=== PATIENT | male | born 1945 | race Caucasian/White ===

== ENCOUNTER 2019-07-05 08:30 | Emergency (ER) | payer MEDICARE ==
[2019-07-05 08:44] VITALS: BP 122/74
--- NOTE | 2019-07-05 09:05 | UC ---
Cardiac HPI - HPI Summary HPI Summary: 74-year-old male comes in with a chief complaint of left-sided chest pain. Started about 4 days ago. Is gradually getting worse. At its worse is about 4- 5 out of 10. The pain is located left anterior chest just below the nipple. He can make the pain worse by pushing on it. No rash. Twisting turning bending also makes the pain worse. Denies any nausea sweating or shortness of breath. Does have a history of hypertension. Also has a history of peptic ulcer. Denies any abdominal pain. No fevers or chills or cough or chest congestion. - History of Current Complaint Chief Complaint: UCGeneralIllness Stated Complaint: RIB PAIN Time Seen by Provider: 07/05/19 08:52 Pain Intensity: 2 - Allergy/Home Medications Allergies/Adverse Reactions: Allergies Allergy/AdvReac Type Severity Reaction Status Date / Time Penicillins Allergy redness Verified 07/05/19 08:44 Home Medications: Home Medications Chondroitin Sulfate A Sodium [Chondroitin Sulfate Sodium] 07/05/19 [History] Dutasteride 0.5 mg PO DAILY 07/05/19 [History Confirmed 07/05/19] Famotidine TAB* [Pepcid 20 MG TAB*] 40 mg PO DAILY 07/05/19 [History Confirmed 07/05/19] [place]-3 Fatty Acids/Fish Oil [Fish Oil 1,000 mg Softgel] 1 tab PO DAILY [History Confirmed 07/05/19] PMH/Surg Hx/FS Hx/Imm Hx Previously Healthy: Yes - BPH Cardiovascular History: Hypertension GI/ History: Gastroesophageal Reflux - Surgical History Surgical History: Yes Surgery Procedure, Year, and Place: Cyst removed on right side of neck. femoral hernia repair - Family History Known Family History: Positive: Non-Contributory - Social History Alcohol Use: Rare Substance Use Type: None Smoking Status (MU): Former Smoker When Did the Patient Quit Smoking/Using Tobacco: age 27 Review of Systems All Other Systems Reviewed And Are Negative: Yes Constitutional: Positive: Negative Skin: Positive: Negative Eyes: Positive: Negative ENT: Positive: Negative Respiratory: Positive: Negative Cardiovascular: Positive: Chest Pain Gastrointestinal: Positive: Negative Genitourinary: Positive: Negative Motor: Positive: Negative Neurovascular: Positive: Negative Musculoskeletal: Positive: Negative Neurological: Positive: Negative Psychological: Positive: Negative Is Patient Immunocompromised?: No Physical Exam Triage Information Reviewed: Yes Appearance: Well-Appearing, No Pain Distress, Well-Nourished Vital Signs: Initial Vital Signs Temp 97.8 F 07/05/19 08:39 Pulse 60 07/05/19 08:39 Resp 16 07/05/19 08:39 BP 122/74 07/05/19 08:39 Pulse Ox 98 07/05/19 08:39 Vital Signs Reviewed: Yes Eye Exam: Normal Eyes: Positive: Conjunctiva Clear Neck: Positive: Supple Respiratory: Positive: Lungs clear, Normal breath sounds, No respiratory distress, Other: - The left anterior chest just below the nipple there is an area that the patient can push and reproduces pain. There is no rash. No obvious deformity. The abdomen is soft and nontender. Cardiovascular: Positive: RRR Abdomen Description: Positive: Nontender, Soft. Negative: CVA Tenderness (R), CVA Tenderness (L) Bowel Sounds: Positive: Present Musculoskeletal: Positive: Strength Intact, ROM Intact, No Edema - NO CALF TENDERNESS Neurological: Positive: Alert Psychological: Positive: Age Appropriate Behavior Skin Exam: Normal Diagnostics - EKG Cardiac Rate: Bradycardia - AT 0929 Cardiac Rhythm: Sinus: Normal - 53BPM Ectopy: None ST Segment: Normal - Assessment/Plan Course Of Treatment: Patient Name: DEMETRIO LAROSE Medical Record#: [id number] Ordering Physician: Jose Walker MD Acct.#: [id number] : 1945 Age: 74 Sex: M Location: [facility] Exam Date: 07/05/19851 ADM Status: REG ER Order Information: RIBS LT UNI W/PA CH MIN 3 VWS Accession Number: [id number] CPT: 49028 HISTORY: left lower ant rib pain COMPARISONS: Chest radiograph dated October 28, 2013 VIEWS: 6, Frontal view of the chest with frontal and oblique views of the left hemithorax FINDINGS: There is no displaced rib fracture or pneumothorax. The visualized lungs are clear. IMPRESSION: NO DISPLACED RIB FRACTURE OR PNEUMOTHORAX. IF THERE IS PERSISTENT CLINICAL CONCERN FOR OSSEOUS PATHOLOGY OF THE RIBS, BONE SCANNING MAY BE MORE SENSITIVE. <Electronically signed by Dontrell Figueroa MD in [place]> 07/05/19 0909 I discussed the x-rays and EKG with the patient. And his . I do not see any ischemic changes on EKG. I recommended further evaluation in the emergency department. The going to go by POV. - Clinical Impression Provider Diagnosis: Left-sided chest pain Discharge - Sign-Out/Discharge Documenting (check all that apply): Patient Departure All imaging exams completed and their final reports reviewed: Yes - Discharge Plan Condition: Stable Disposition: HOME-RECOMMEND TO ED Patient Education Materials: Chest Pain (ED) Referrals: Nestor Forrest MD [Primary Care Provider] - Additional Instructions: GO DIRECTLY TO THE EMERGENCY DEPARTMENT FOR FURTHER EVALUATION OF YOUR CHEST PAIN. - Billing Disposition and Condition Condition: STABLE Disposition: Home-Recommend to ED
== END 2019-07-05 09:58 | disposition home health service (06) ==
LOC: UCEAST 08:30
DX: R07.89 Other chest pain (principal); I10 Essential (primary) hypertension; K21.9 Gastro-esophageal reflux disease without esophagitis; Z88.0 Allergy status to penicillin; Z87.891 Personal history of nicotine dependence
CPT/HCPCS: 93005; 99212; G0463

== ENCOUNTER 2019-07-05 10:15 | Emergency (ER) | payer MEDICARE ==
--- NOTE | 2019-07-05 10:40 | ED ---
HPI Chest Pain - HPI Summary HPI Summary: 74 year old M presenting to [facility] from [facility] accompanied by complains of left-sided rib pain rated 1/10 in severity since this morning. Symptoms aggravated by movement and deep breathing. Symptoms alleviated by nothing. Patient reports worsening left-sided rib tenderness and soreness. Denies trauma and fall. Patient states he had EKG and x-ray done at [facility] which were normal. He was referred to ED for cardiac blood work. Reports hx HTN for which he takes lisinopril. Denies hx diabetes, hypercholesterolemia. - History of Current Complaint Chief Complaint: EDChestWallPain Time Seen by Provider: 07/05/19 10:31 Hx Obtained From: Patient Onset/Duration: Started Hours Ago, Still Present Timing: Constant Current Severity: Mild Pain Intensity: 1 Pain Scale Used: 0-10 Numeric Aggravating Factor(s): Movement, Deep Breaths Alleviating Factor(s): Nothing Associated Signs and Symptoms: Positive: Other: - worsening left-sided rib tenderness and soreness - Allergy/Home Medications Allergies/Adverse Reactions: Allergies Allergy/AdvReac Type Severity Reaction Status Date / Time Penicillins Allergy redness Verified 07/05/19 10:25 Home Medications: Home Medications Gas-X 1 tab PO SEE INSTRUCTIONS 07/05/19 [History Confirmed 07/05/19] PMH/Surg Hx/FS Hx/Imm Hx Endocrine/Hematology History: Denies: Hx Diabetes Cardiovascular History: Reports: Hx Hypertension Denies: Hx Hypercholesterolemia GI History: Reports: Hx Ulcer - "bleeding ulcer" 1999, Other GI Disorders - bleeding ulcer History: Reports: Other Problems/Disorders - enlarged prostate Sensory History: Reports: Hx Contacts or Glasses Opthamlomology History: Reports: Hx Contacts or Glasses - Surgical History Surgery Procedure, Year, and Place: Cyst removed on right side of neck. femoral hernia repair - Immunization History Date of Tetanus Vaccine: Unk Date of Influenza Vaccine: None Infectious Disease History: No Infectious Disease History: Denies: Traveled Outside the [place] in Last 30 Days - Family History Known Family History: Positive: Non-Contributory - Social History Alcohol Use: Rare Hx Substance Use: No Substance Use Type: Reports: None Hx Tobacco Use: Yes Smoking Status (MU): Former Smoker Review of Systems Positive: Chest Pain Positive: Other - worsening left-sided rib pain, tenderness and soreness All Other Systems Reviewed And Are Negative: Yes Physical Exam - Summary Physical Exam Summary: VITAL SIGNS: Reviewed. GENERAL: Patient is a well-developed and nourished MALE ho is lying comfortable in the stretcher. Patient is not in any acute respiratory distress. HEAD AND FACE: No signs of trauma. No ecchymosis, hematomas or skull depressions. No sinus tenderness. EYES: PERRLA, EOMI x 2, No injected conjunctiva, no nystagmus. EARS: Hearing grossly intact. Ear canals and tympanic membranes are within normal limits. MOUTH: Oropharynx within normal limits. NECK: Supple, trachea is midline, no adenopathy, no JVD, no carotid bruit, no c- spine tenderness, neck with full ROM. CHEST: Patient has reproducible chest pain LUNGS: Clear to auscultation bilaterally. No wheezing or crackles. CVS: Regular rate and rhythm, S1 and S2 present, no murmurs or gallops appreciated. ABDOMEN: Soft, non-tender. No signs of distention. No rebound, no guarding, and no masses palpated. Bowel sounds are normal. EXTREMITIES: FROM in all major joints, no edema, no cyanosis or clubbing. NEURO: Alert and oriented x 3. No acute neurological deficits. Speech is normal and follows commands. SKIN: Dry and warm. Triage Information Reviewed: Yes Vital Signs On Initial Exam: Initial Vitals Temp Pulse Resp BP Pulse Ox 97.5 F 60 16 137/80 100 07/05/19 10:22 07/05/19 10:22 07/05/19 10:22 07/05/19 10:22 07/05/19 10:22 Vital Signs Reviewed: Yes Diagnostics - Vital Signs Vital Signs Temp Pulse Resp BP Pulse Ox 07/05/19 10:22 97.5 F 60 16 137/80 100 - Laboratory Result Diagrams: 07/05/19 11:02 07/05/19 11:02 Lab Statement: Any lab studies that have been ordered have been reviewed, and results considered in the medical decision making process. - EKG 1044 Cardiac Rate: Bradycardia - 52 BPM EKG Rhythm: Sinus Bradycardia EKG Comparison: No Significant Change - compared to 05/24/15 Summary of EKG Findings: Sinus bradycardia [address] elevations. Similar to previous EKG done on 05/24/15. Chest Pain Course/Dx - Course Assessment/Plan: 74 year old M presenting to [facility] from [facility] accompanied by complains of left-sided rib pain rated 1/10 in severity since this morning. Symptoms aggravated by movement and deep breathing. Symptoms alleviated by nothing. Patient reports worsening left-sided rib tenderness and soreness. Denies trauma and fall. Patient states he had EKG and x-ray done at [facility] which were normal. He was referred to ED for cardiac blood work. Reports hx HTN for which he takes lisinopril. Denies hx diabetes, hypercholesterolemia. Blood tests without any significant abnormality except for creatinine is 1.32 , first troponin is 0.00. EKG is a normal sinus rhythm without any ST elevations. Second troponin is also 0.00. Patient continues to be asymptomatic in the ED. Therefore, the patient will be discharged home with follow-up with PCP. Patient is hemodynamically stable alert and oriented 3. - Diagnoses Provider Diagnoses: Atypical chest pain Discharge - Sign-Out/Discharge Documenting (check all that apply): Patient Departure - Discharge Patient Received Moderate/Deep Sedation with Procedure: No - Discharge Plan Condition: Stable Disposition: HOME Patient Education Materials: Chest Pain (ED) Referrals: Nestor Forrest MD [Primary Care Provider] - 3 Days Additional Instructions: Follow up with your primary care provider in 3 days. Return to the Emergency Department for new or worsening symptoms. - Billing Disposition and Condition Condition: STABLE Disposition: Home - Attestation Statements Document Initiated by Valarie: Yes Documenting Scribe: Mellissa Macias Provider For Whom Valarie is Documenting (Include Credential): Nestor Schultz MD Scribe Attestation: Mellissa Troncoso, scribed for Nestor Schultz MD on 07/05/19 at 1856. Scribe Documentation Reviewed: Yes Provider Attestation: The documentation as recorded by the Mellissa rojo accurately reflects the service I personally performed and the decisions made by , Nestor Schultz MD Status of Scribe Document: Viewed
[2019-07-05 11:10] LABS: ABS Eosinophils 0.1 10^3/ul (0-0.6); ABS Lymphocytes 1.2 10^3/ul (1.0-4.8); ABS Monocytes 0.5 10^3/ul (0-0.8); ABS Neutrophils 3.4 10^3/ul (1.5-7.7); Eosinophil % 1.3 %; Hematocrit 41 % (42-52); Hemoglobin 14.2 g/dL (14.0-18.0); Lymphocyte % 22.9 %; Mean Corpuscular HGB Conc 34 g/dL (31-36); Mean Corpuscular Hemoglobin 32 pg (27-31); Mean Corpuscular Volume 92 fL (80-94); Mean Platelet Volume 8.8 fL (7.4-10.4); Platelet Count 199 10^3/uL (150-450); Red Blood Count 4.49 10^6 /uL (4.18-5.48); Red Cell Distribution Width 13 % (10-15); White Blood Count 5.2 10^3/uL (3.5-10.8)
[2019-07-05 11:27] LABS: Albumin 4.2 g/dL (3.2-5.2); Albumin/Globulin Ratio 1.5 (1-3); BUN/Creatinine Ratio 16.7 (8-20); Calcium 9.7 mg/dL (8.6-10.3); EGFR Non-African American 52.9 (>60); Globulin 2.8 g/dL (2-4); Total Bilirubin 0.7 mg/dL (0.2-1.0)
[2019-07-05 11:32] LABS: CKMB ng/mL 7.7 ng/mL (0.6-6.3)
[2019-07-05 14:28] VITALS: BP 113/66
== END 2019-07-05 14:27 | disposition home or self-care (01) ==
LOC: ED 10:15
DX: R07.89 Other chest pain (principal); I10 Essential (primary) hypertension; Z79.899 Other long term (current) drug therapy; Z88.0 Allergy status to penicillin; Z87.891 Personal history of nicotine dependence
CPT/HCPCS: 36415; 80053; 82550; 82553; 84484; 85025; 93005; 99283